=== PATIENT | female | born 1960 | race Caucasian/White ===

== ENCOUNTER 2018-07-30 16:48 | Emergency (ER) | payer OTHER ==
[2018-07-30 17:14] VITALS: BP 138/101; PULSE 90; RESP 20; TEMP 98.1
[2018-07-30 18:26] LABS: Basophils % (A) 1 %; Eosinophils # (A) 0.3 k/uL (0-0.7); Eosinophils % (A) 3 %; HCT 47.9 % (34.0-46.0); HGB 15.6 gm/dL (11.4-16.0); Lymphocytes % (A) 21 %; MCH 30.3 pg (25.0-35.0); MCHC 32.5 g/dL (31.0-37.0); MCV 93.2 fL (80.0-100.0); Mean Platelet Volume 7.1; Monocytes # (A) 0.4 k/uL (0-1.0); Monocytes % (A) 4 %; Neutrophils # (A) 6.5 k/uL (1.3-7.7); Neutrophils % (A) 70 %; Platelet Count 275 k/uL (150-450); RBC 5.14 m/uL (3.80-5.40); RDW 12.8 % (11.5-15.5); WBC 9.4 k/uL (3.8-10.6)
[2018-07-30 18:35] LABS: INR 0.9 (<1.2); Partial Thromboplastin Time 26.4 sec (22.0-30.0); Prothrombin Time 9.9 sec (9.0-12.0)
[2018-07-30 18:38] LABS: ALT 35 U/L (9-52); AST 31 U/L (14-36); Albumin 4.7 g/dL (3.5-5.0); Alkaline Phosphatase 86 U/L (38-126); Anion Gap 9 mmol/L; Blood Urea Nitrogen 11 mg/dL (7-17); Calcium 10.7 mg/dL (8.4-10.2); Carbon Dioxide 26 mmol/L (22-30); Chloride 107 mmol/L (98-107); Glucose 103 mg/dL (74-99); Magnesium 2.2 mg/dL (1.6-2.3); Potassium 4.2 mmol/L (3.5-5.1); Sodium 142 mmol/L (137-145); Total Bilirubin 0.4 mg/dL (0.2-1.3); Total Protein 7.4 g/dL (6.3-8.2)
[2018-07-30] MEDS ORDERED: MAG HYDROX/AL HYDROX/SIMETH 30 ML, HYOSCYAMINE ELIXIR 10 ML, CIMETIDINE HCL 300 MG, LID... PO STA ×4 (19:20)
[2018-07-30] MEDS ORDERED: FAMOTIDINE 20 MG/2 ML VIAL IV STA (19:20)
[2018-07-30 19:44] LABS: Amylase 63 U/L (30-110); Lipase 169 U/L (23-300)
[2018-07-30] MEDS ORDERED: FAMOTIDINE 20 MG TAB PO STA (19:44)
--- NOTE | 2018-07-30 20:24 | ED ---
Chest Pain HPI - General Chief Complaint: Chest Pain Stated Complaint: Chest pain Time Seen by Provider: 07/30/18 19:02 Source: patient Mode of arrival: ambulatory Limitations: no limitations - History of Present Illness Initial Comments: 58-year-old female patient presents to the emergency department today for evaluation of abdominal pain. Patient states she initially was having sharp gas pains in her abdomen. Patient states she bent over and the pain started radiating into her chest and her left shoulder. Patient states this started around 1300 this afternoon and persisted so she presented here for further evaluation. Patient states that she has passed some gas and the pain has lessened somewhat. Patient denies any shortness of breath with this. Denies any nausea or vomiting. States that she has been having increased indigestion and heartburn over the last couple of weeks which she has not had in the past. She denies any radiation of the pain through to her back. Denies any dizziness or weakness with this. Denies any sweats. Patient does admit to smoking cigarettes. She denies any alcohol or drug use. Denies any family history of coronary artery disease. Patient denies any recent rash, fever, chills, diarrhea, constipation, back pain, numbness, tingling, hematuria, dysuria, urinary urgency, urinary frequency, headache, visual changes, or any other complaints. - Related Data Home Medications Medication Instructions Recorded Confirmed Dextroamphetamine/Amphetamine 20 mg PO TID 08/12/14 07/30/18 [Adderall] lamoTRIgine [LaMICtal] 400 mg PO HS 08/12/14 07/30/18 ALPRAZolam [Xanax] 0.25 mg PO QID PRN 07/30/18 07/30/18 Previous Rx's Medication Instructions Recorded Famotidine [Pepcid] 20 mg PO HS #30 tablet 07/30/18 Allergies Allergy/AdvReac Type Severity Reaction Status Date / Time No Known Allergies Allergy Verified 07/30/18 19:14 Review of Systems ROS Statement: Those systems with pertinent positive or pertinent negative responses have been documented in the HPI. ROS Other: All systems not noted in ROS Statement are negative. EKG Findings - EKG Comments: EKG Findings:: EKG obtained at 1815 shows normal sinus rhythm with biatrial enlargement. Ventricular rate is 84, MI interval 134, QRS duration 86, QT 380, QTc 449. No evidence of ST elevation or depression. Past Medical History Past Medical History: Hypertension History of Any Multi-Drug Resistant Organisms: None Reported Past Surgical History: Tubal Ligation Additional Past Surgical History / Comment(s): RT HAND CARPAL TUNNEL RELEASE. HIATAL HERNIA Past Psychological History: Anxiety, Bipolar, Depression Smoking Status: Current every day smoker Past Alcohol Use History: None Reported Past Drug Use History: None Reported General Exam Limitations: no limitations General appearance: alert, in no apparent distress, other (Physical well- developed, well-nourished adult female patient in no acute distress. Vital signs upon presentation are temperature 98.1F, pulse 90, respirations 20, blood pressure 138/101, pulse ox 97% on room air.) Eye exam: Present: normal appearance, PERRL, EOMI. Absent: scleral icterus, conjunctival injection, periorbital swelling ENT exam: Present: normal exam, normal oropharynx, mucous membranes moist Respiratory exam: Present: normal lung sounds bilaterally. Absent: respiratory distress, wheezes, rales, rhonchi, stridor Cardiovascular Exam: Present: regular rate, normal rhythm, normal heart sounds. Absent: systolic murmur, diastolic murmur, rubs, gallop, clicks GI/Abdominal exam: Present: soft, tenderness (Midepigastric and left upper quadrant tenderness), normal bowel sounds. Absent: distended, guarding, rebound, rigid Neurological exam: Present: alert, oriented X3, CN II-XII intact Psychiatric exam: Present: normal affect, normal mood Skin exam: Present: warm, dry, intact, normal color. Absent: rash Course Vital Signs 07/30/18 17:12 Temperature 98.1 F Pulse Rate 90 Respiratory 20 Rate Blood Pressure 138/101 O2 Sat by Pulse 97 Oximetry Chest Pain [facility] RADIOLOGY:Two-view x-ray of the abdomen is obtained. Report was reviewed in its entirety. Impression by Dr. Sullivan shows nonacute abdomen. Two-view x-ray of the chest is obtained. Report was reviewed in its entirety. Impression by Dr. Sullivan shows normal chest with no change. MDM: 58-year-old female patient presents to the emergency department today for evaluation after she is having some sharp abdominal pain that began to radiate into her chest. Physical examination is unremarkable. Lungs are clear to auscultation with good air movement. Abdomen did reveal some tenderness to the midepigastric and left upper quadrant region. Patient also reported having increased indigestion over the last couple of weeks. Patient labs reviewed and were unremarkable. Troponin negative. EKG showed normal sinus rhythm. Patient was given GI cocktail does report complete resolution of symptoms. She is accompanied discharged home at this time to follow-up with her primary care physician we did discuss possibility of gastritis versus GERD as a cause for her symptoms. She was urged discuss referral to [facility] symptoms persist. She'll be started on Pepcid daily. Return parameters were discussed in detail. She verbalizes understanding and agrees with this plan. Disposition Clinical Impression: Abdominal pain Disposition: HOME SELF-CARE Condition: Good Instructions (If sedation given, give patient instructions): Abdominal Pain (ED) Additional Instructions: Take medication as directed. Follow-up through primary care physician in 1 to 2 days and gastroenterology as needed. Return to the emergency department immediately for any new, worsening, or concerning symptoms. Prescriptions: Famotidine [Pepcid] 20 mg PO HS #30 tablet Is patient prescribed a controlled substance at d/c from ED?: No Referrals: Dick Gallagher DO [Primary Care Provider] - 1-2 days Time of Disposition: 21:13
--- NOTE | 2018-07-30 21:00 | XR ---
EXAMINATION TYPE: XR chest 2V DATE OF EXAM: 07/30/2018 COMPARISON: 08/12/2014 HISTORY: Chest pain TECHNIQUE: Frontal and lateral views of the chest are obtained. FINDINGS: Heart and mediastinum are normal. Lungs are clear. Diaphragm is normal. Bony thorax is int act. IMPRESSION: Normal chest. No change.
--- NOTE | 2018-07-30 21:01 | XR ---
EXAMINATION TYPE: XR KUB DATE OF EXAM: 07/30/2018 COMPARISON: NONE HISTORY: Left upper quadrant pain TECHNIQUE: 2 views upright FINDINGS: There is no sign of intestinal obstruction or pneumoperitoneum. Fecal pattern is normal. Th ere is no sign of a mass. There are no pathologic calcifications over the kidneys. IMPRESSION: Nonacute abdomen.
== END 2018-07-30 21:20 | disposition home or self-care (01) ==
LOC: EC 16:48
DX: R10.9 Unspecified abdominal pain (principal); R07.9 Chest pain, unspecified; K30 Functional dyspepsia; R12 Heartburn; R14.1 Gas pain; M25.512 Pain in left shoulder; F31.9 Bipolar disorder, unspecified; F41.9 Anxiety disorder, unspecified; F17.210 Nicotine dependence, cigarettes, uncomplicated; Z79.899 Other long term (current) drug therapy; Z86.79 Personal history of other diseases of the circulatory system; Z53.8 Procedure and treatment not carried out for other reasons
CPT/HCPCS: 36415; 71046; 74018; 80053; 82150; 83690; 83735; 84484; 85025; 85610; 85730; 93005; 99285